=== PATIENT | female | born 1980 | race Two or more races ===

== ENCOUNTER 2021-06-22 08:45 | Outpatient (CLI) | payer BC, MEDICAID ==
[2021-06-22] MEDS ORDERED: magnesium PO (09:18)
== END 2021-06-22 23:59 | disposition home or self-care (01) ==
LOC: STAR 08:45
PROVIDERS: ATTEND Otolaryngology
DX: Z02.9 Encounter for administrative examinations, unspecified (principal)

== ENCOUNTER 2021-06-28 07:16 | Day surgery (SDC) | payer BC, MEDICAID ==
[~2021-06-28] VITALS: Ht 157.5 cm; Wt 66.0 kg
[~2021-06-28 07:16] MED LIST: BACITRACIN OINT 500U/GM, 15 GM ONE; EPINEPHRINE TOPICAL SOLN 1 MG/ML, 30ML ONE; FLUORESCEIN SODIUM 500 MG/5 ML ONE; LIDOCAINE/PF 1%-EPI 1:200K, 30 ML ONE; OXYMETAZOLINE NASAL SPRAY 0.05%,30ML ONE; magnesium PO
[2021-06-28] MEDS ORDERED: CHLORHEXIDINE 15 ML UDC ONE (07:57)
[2021-06-28] MEDS ORDERED: LACTATED RINGERS 1,000 ML IV SCH (08:00)
[2021-06-28] MEDS ORDERED: CHLORHEXIDINE 15 ML UDC PO ONE (08:00)
[2021-06-28 08:15] VITALS: BP 116/79
[2021-06-28 08:24] LABS: HCG UR SG 1.021 (1.003-1.030)
[2021-06-28] MEDS ORDERED: MIDAZOLAM 1 MG/ML, 2ML ONE (08:34)
[2021-06-28] MEDS ORDERED: LIDOCAINE-MPF 2% ,5ML ONE (08:35)
[2021-06-28] MEDS ORDERED: FENTANYL PF 250 MCG/5ML ONE (08:35)
[2021-06-28] MEDS ORDERED: PROPOFOL 10 MG/ML, 20ML ONE (08:36)
[2021-06-28] MEDS ORDERED: CLIN300C3 PO (08:52)
[2021-06-28] MEDS ORDERED: SENN-99 PO (08:52)
[2021-06-28] MEDS ORDERED: OXYC5TAB2 PO (08:52)
[2021-06-28] MEDS ORDERED: ACET325T14 PO (08:52)
[2021-06-28] MEDS ORDERED: ONDANSETRON 2MG/ML, 2ML ONE (09:07)
[2021-06-28] MEDS ORDERED: CEFAZOLIN 1,000 MG ONE ×2 (09:07)
[2021-06-28] MEDS ORDERED: DEXAMETHASONE 4 MG/ML, 1ML ONE ×2 (09:07)
[2021-06-28] MEDS ORDERED: ROCURONIUM 10MG/ML,5ML ONE (09:07)
[2021-06-28] MEDS ORDERED: HYDROmorphone 1 MG/ML, 1ML INJ IVPush PRN (09:30)
[2021-06-28] MEDS ORDERED: hydrALAzine 20 MG/ML, 1ML IV PRN (09:30)
[2021-06-28] MEDS ORDERED: MEPERIDINE/PF 25MG/0.5ML IVPush PRN (09:30)
[2021-06-28] MEDS ORDERED: ACETAMINOPHEN 325 MG TABLET PO PRN (09:30)
[2021-06-28] MEDS ORDERED: PROMETHAZINE 25 MG/ML, 1ML IVPush PRN (09:30)
[2021-06-28] MEDS ORDERED: LABETALOL 5MG/ML, 20ML IV PRN (09:30)
[2021-06-28] MEDS ORDERED: DIAZEPAM 5 MG/ML, 2ML IVPush PRN (09:30)
[2021-06-28] MEDS ORDERED: ONDANSETRON 2MG/ML, 2ML IVPush PRN (09:30)
[2021-06-28] MEDS ORDERED: FENTANYL PF 100 MCG/2ML IV PRN (09:30)
[2021-06-28] MEDS ORDERED: OXYcodone 5 MG/5 ML ORAL.SOL UDC PO PRN (09:30)
[2021-06-28] MEDS ORDERED: NEOSTIGMINE 1 MG/ML, 10ML ONE (10:59)
[2021-06-28] MEDS ORDERED: GLYCOPYRROLATE 0.2MG/1ML, 5ML ONE (10:59)
== END 2021-06-28 14:00 | disposition home or self-care (01) ==
LOC: OUT 07:16
PROVIDERS: ATTEND Otolaryngology
DX: J34.2 Deviated nasal septum (principal); J34.3 Hypertrophy of nasal turbinates; J34.89 Other specified disorders of nose and nasal sinuses; J31.0 Chronic rhinitis; Z79.899 Other long term (current) drug therapy; Z88.8 Allergy status to other drugs, medicaments and biological substances
CPT/HCPCS: 30140; 30520; 81025; J0690; J1100; J2250; J2405; J2704; J2710; J3010; J7120

== ENCOUNTER 2021-06-28 18:39 | Emergency (ER) | payer BC, MEDICAID ==
[~2021-06-28] VITALS: Ht 157.5 cm; Wt 65.0 kg
[~2021-06-28 18:39] MED LIST changes: +ACET325T14 PO; -BACITRACIN OINT 500U/GM, 15 GM ONE; +CLIN300C3 PO; -EPINEPHRINE TOPICAL SOLN 1 MG/ML, 30ML ONE; -FLUORESCEIN SODIUM 500 MG/5 ML ONE; -LIDOCAINE/PF 1%-EPI 1:200K, 30 ML ONE; +OXYC5TAB2 PO; -OXYMETAZOLINE NASAL SPRAY 0.05%,30ML ONE; +SENN-99 PO
[2021-06-28 18:43] VITALS: BP 125/79
[2021-06-28 19:26] LABS: BASOPHILS % (AUTO) 1 % (0-1); EOSINOPHILS % (AUTO) 0 % (1-7); LYMPHOCYTES % (AUTO) 8 % (22-44); MEAN CORPUSCULAR HEMOGLOBIN 30.8 pg (27.0-34.8); MEAN CORPUSCULAR HGB CONC 33.7 g/dL (32.4-35.8); MEAN PLATELET VOLUME 8.3 fL (7.4-10.4); MONOCYTES % (AUTO) 1 % (2-9); NEUTROPHILS % (AUTO) 90 % (42-75); PLATELET COUNT 228 x10^3/uL (130-400); RED BLOOD COUNT 4.33 x10^6/uL (3.82-5.3); RED CELL DISTRIBUTION WIDTH 14.5 % (9.6-15.2)
[2021-06-28 19:39] LABS: CHLORIDE 102 mmol/L (98-107)
[2021-06-28 19:40] LABS: ALBUMIN 3.7 g/dL (3.4-5.0); ANION GAP 12 mmol/L (5-15); CALCIUM 8.4 mg/dL (8.5-10.1)
[2021-06-28 19:45] LABS: ALANINE AMINOTRANSFERASE 27 U/L (12-78); ALKALINE PHOSPHATASE 62 U/L (45-117); BILIRUBIN,TOTAL 0.3 mg/dL (0.2-1.0); CREATININE 0.67 mg/dL (0.55-1.02); TOTAL PROTEIN 7.8 g/dL (6.4-8.2)
== END 2021-06-28 20:37 | disposition left against medical advice (07) ==
LOC: ED 19:00
DX: R55 Syncope and collapse (principal); R07.89 Other chest pain; R94.31 Abnormal electrocardiogram [ECG] [EKG]
CPT/HCPCS: 36415; 71045; 80053; 84703; 85025; 93005; 99285